=== PATIENT | male | born 1985 | race Caucasian/White ===

== ENCOUNTER 2023-07-29 07:15 | Emergency (ER) | payer SELFPAY ==
[2023-07-29] VITALS (13 sets, daily range): BP systolic 71–135; BP diastolic 50–82; PULSE 72–93; RESP 16–24; TEMP 36.5–36.7; O2SAT 95–99; BMI 32.5
--- NOTE | 2023-07-29 07:21 | ED_ITS ---
Discharge Plan Disposition Patient Disposition: Xfer Short-Term Hosp Condition: Fair Referrals Follow up/Referrals: Provider,Referral, MD [Primary Care Provider] - See instructions Clinical Impressions Clinical Impression: Hydronephrosis, Acute kidney injury Stand Alone Forms Stand Alone Forms: Transfer Record - ED Instructions Patient Instructions: DI for Kidney Stones Discharge ED Provider: Dennis Vasquez General Adult HPI General Chief complaint: PAIN Stated complaint: abd pain Time Seen by Provider: 07/29/23 07:21 History of Present Illness HPI narrative: The patient presents with a chief complaint of persistent kidney stone pain on the right side, which has been ongoing for 3 months. The kidney stone is 5 millimeters in size and has not passed despite a 50-50 chance of passing it. The patient was in the emergency room a week ago for the same issue. The pain comes and goes, with the current episode starting last night at 12 o'clock. The patient has been trying to avoid coming to the emergency room due to not wanting to worry their children. The patient is visiting family and was supposed to return home tomorrow. The patient has been prescribed Flomax and pain medication for the kidney stone. The patient denies any other medical conditions or medications, except for a previous knee injury. A mild fever was experienced recently but not upon arrival at the emergency room. The kidney stone is reportedly 2 centimeters away from the bladder per prior CT. Please note that above description of symptoms, in this electronic medical record under categorization of recalled from ER triage doctor by RN are reflective of an initial nursing assessment, however, is not reflective of my full history and physical exam that was personally taken and clarified. Consequentially, this preceding description of symptoms, which may include the patient's categorized chief complaint in the EMR, do not reflect my personal clinical impression, and the ultimate description of history of present illness and patient stated complaints should be deferred to this section of the note. Unless stated otherwise or congruent with this section of the note, additional signs, symptoms, or incongruence should be interpreted as inaccurate with my clinical impression. Related Data Allergies Allergy/AdvReac Type Severity Reaction Status Date / Time No Known Allergies Allergy Verified 07/29/23 07:28 [facility] Disclaimer: The information contained in this section may have been updated after the patient was seen, as this information can be updated by other users. Medical History (Updated 07/29/23 @ 12:56 by Dennis Vasquez MD) PTSD (post-traumatic stress disorder) Anxiety Social History Smoking Status: Never smoker alcohol intake: former current occupational status: other Travel in the last 8 weeks: Inside the [place] ROS Obtained: Yes other As per HPI Physical Exam General General appearance: alert and in distress Head Head exam: atraumatic and normocephalic Eye Eye exam: Present normal appearance Neck Neck exam: Present normal inspection Chest Chest inspection: Present normal inspection and symmetric chest wall rise Respiratory Respiratory exam: Present normal lung sounds bilaterally; Absent respiratory distress Cardiovascular Cardiovascular exam: Present regular rate and normal rhythm Abdominal Exam Abdominal exam: Present soft Comment: Right-sided CVA tenderness to palpation, right lower quadrant abdominal pain Neurological Exam Neurological exam: Present alert and oriented X3 Psychiatric Psychiatric exam: Present normal affect and normal mood Skin Skin exam: Present warm and dry Medical Decision Making Medical Records Medical records reviewed: Yes I reviewed the patient's medical records. Colin Inquiry Pt receiving controlled substance: No Vital Signs: 07/29/23 07:16 07/29/23 07:22 07/29/23 07:38 Temperature 97.7 F Temperature Source Oral Pulse Rate 92 H 91 H Pulse Rate [Right] 73 Respiratory Rate 24 Blood Pressure 129/78 135/70 Blood Pressure [Right Arm] 129/78 Blood Pressure Mean [Right Arm] 95 02 Sat by Pulse Oximetry 98 98 97 Oxygen Delivery Method Room Air 07/29/23 08:01 07/29/23 08:33 07/29/23 09:15 Temperature Temperature Source Pulse Rate 87 88 83 Pulse Rate [Right] Respiratory Rate Blood Pressure 110/73 98/72 L 71/50 L Blood Pressure [Right Arm] Blood Pressure Mean [Right Arm] 02 Sat by Pulse Oximetry 97 98 97 Oxygen Delivery Method 07/29/23 09:31 07/29/23 10:03 07/29/23 10:58 Temperature Temperature Source Pulse Rate 86 72 93 H Pulse Rate [Right] Respiratory Rate Blood Pressure 113/71 108/68 L 119/66 Blood Pressure [Right Arm] Blood Pressure Mean [Right Arm] 02 Sat by Pulse Oximetry 99 99 95 Oxygen Delivery Method 07/29/23 11:30 07/29/23 12:02 07/29/23 12:31 Temperature Temperature Source Pulse Rate 90 86 79 Pulse Rate [Right] Respiratory Rate Blood Pressure 111/74 119/82 120/80 Blood Pressure [Right Arm] Blood Pressure Mean [Right Arm] 02 Sat by Pulse Oximetry 95 98 99 Oxygen Delivery Method 07/29/23 12:39 Temperature 98.0 F Temperature Source Oral Pulse Rate 76 Pulse Rate [Right] Respiratory Rate 16 Blood Pressure 117/62 Blood Pressure [Right Arm] Blood Pressure Mean [Right Arm] 02 Sat by Pulse Oximetry Oxygen Delivery Method Room Air Lab Data Lab Results 07/29/23 07:20: WBC 10.2, RBC 6.07, Hgb 15.8, Hct 49.0, MCV 80.6, MCH 26.0 L, MCHC 32.2, RDW 15.1, Plt Count 188, MPV 7.8, Neut % (Auto) 60.6, Lymph % (Auto) 31.9, [place]ha % (Auto) 4.4, Eos % (Auto) 2.0, Baso % (Auto) 1.1, Neut # (Auto) 6.2, Lymph # (Auto) 3.2, [place] # (Auto) 0.4, Eos # (Auto) 0.2, Baso # (Auto) 0.1, Sodium 139, Potassium 3.5, Chloride 106, Carbon Dioxide 23, Anion Gap 13.5, BUN 15, Creatinine 1.70 H, Estimated Creat Clear 85, Estimated GFR 46 L, Est GFR ( Amer) 55 L, Glucose 103 H, Calcium 9.3, Total Bilirubin 0.8, AST 41, ALT 39, Alkaline Phosphatase 71, Total Protein 7.8, Albumin 4.5, Globulin 3.3 H, Albumin/Globulin Ratio 1.4 07/29/23 09:06: Urine Color Dark yellow, Urine Appearance Clear, Urine pH 7.0, Ur Specific [place] 1.020, Urine Protein 1+, Urine Glucose (UA) Trace, Urine Ketones Trace, Urine Blood Negative, Urine Nitrate Positive, Urine Bilirubin 1+ A, Urine Urobilinogen 4.0, Ur Leukocyte Esterase Negative, Urine RBC None, Urine WBC Occasional, Ur Squamous Epith Cells Occasional, Urine Bacteria Trace 07/29/23 07:20 07/29/23 07:20 Orders (Tests/Meds): ED MEDICATIONS Discontinued Medications Generic Name Dose Route Start Last Admin Trade Name Freq PRN Reason Stop Dose Admin Hydromorphone HCl 0.5 mg 07/29/23 07:22 07/29/23 07:42 Hydromorphone 4 Mg/Ml Syringe IV 07/29/23 07:23 Not Given ONCE ONE Hydromorphone HCl 0.5 mg 07/29/23 07:41 07/29/23 07:43 Hydromorphone 2mg/Ml Syringe IV 07/29/23 07:42 0.5 mg ONCE ONE Administration Hydromorphone HCl 0.5 mg 07/29/23 09:38 07/29/23 09:45 Hydromorphone 4 Mg/Ml Syringe IV 07/29/23 09:39 Not Given ONCE ONE Hydromorphone HCl 0.5 mg 07/29/23 09:45 07/29/23 09:45 Hydromorphone 2mg/Ml Syringe IV 07/29/23 09:46 0.5 mg ONCE ONE Administration Lactated Ringer's 1,000 mls @ 999 mls/hr 07/29/23 07:22 07/29/23 07:43 Lactated Ringer's 1000 Ml Bag IV 07/29/23 08:22 999 mls/hr .Q1H1M ONE Administration Lactated Ringer's 1,000 mls @ 999 mls/hr 07/29/23 09:05 07/29/23 09:15 Lactated Ringer's 1000 Ml Bag IV 07/29/23 10:05 999 mls/hr .Q1H1M ONE Administration Ketorolac Tromethamine 15 mg 07/29/23 07:22 07/29/23 07:42 Ketorolac 30mg/Ml Vial IV 07/29/23 07:23 15 mg ONCE ONE Administration Lorazepam 0.5 mg 07/29/23 10:26 07/29/23 10:46 Lorazepam 2mg/Ml Vial IV 07/29/23 10:27 0.5 mg ONCE ONE Administration Ondansetron HCl 4 mg 07/29/23 07:22 07/29/23 07:42 Ondansetron 4mg/2ml Vial IV 07/29/23 07:23 4 mg ONCE ONE Administration Sodium Chloride 10 ml 07/29/23 10:26 Sodium Chloride 0.9% 10ml Vial IV 08/28/23 10:25 NEEDED PRN to Dilute Lorazepam inj ORDERS Category Date Time Status CT abdomen pelvis wo con Stat Cat Scan 07/29/23 07:27 Completed CBC w/Auto Diff [Complete Blood Count Auto Diff] Stat Lab 07/29/23 07:20 Completed CMP [Comprehensive Metabolic Panel] Stat Lab 07/29/23 07:20 Completed Urinalysis and Microscopic Stat Lab 07/29/23 09:06 Completed Urine Culture Stat Micro 07/29/23 09:49 Received Medical Decision Narrative: Patient with history and exam per above presenting for evaluation of right- sided flank pain Diagnoses considered include urolithiasis, hydronephrosis, infected stone, acute kidney injury, electrolyte abnormality, intra-abdominal pathology, among others ED workup and treatment included: ED MEDICATIONS Discontinued Medications Generic Name Dose Route Start Last Admin Trade Name Freq PRN Reason Stop Dose Admin Hydromorphone HCl 0.5 mg 07/29/23 07:22 07/29/23 07:42 Hydromorphone 4 Mg/Ml Syringe IV 07/29/23 07:23 Not Given ONCE ONE Hydromorphone HCl 0.5 mg 07/29/23 07:41 07/29/23 07:43 Hydromorphone 2mg/Ml Syringe IV 07/29/23 07:42 0.5 mg ONCE ONE Administration Hydromorphone HCl 0.5 mg 07/29/23 09:38 07/29/23 09:45 Hydromorphone 4 Mg/Ml Syringe IV 07/29/23 09:39 Not Given ONCE ONE Hydromorphone HCl 0.5 mg 07/29/23 09:45 07/29/23 09:45 Hydromorphone 2mg/Ml Syringe IV 07/29/23 09:46 0.5 mg ONCE ONE Administration Lactated Ringer's 1,000 mls @ 999 mls/hr 07/29/23 07:22 07/29/23 07:43 Lactated Ringer's 1000 Ml Bag IV 07/29/23 08:22 999 mls/hr .Q1H1M ONE Administration Lactated Ringer's 1,000 mls @ 999 mls/hr 07/29/23 09:05 07/29/23 09:15 Lactated Ringer's 1000 Ml Bag IV 07/29/23 10:05 999 mls/hr .Q1H1M ONE Administration Ketorolac Tromethamine 15 mg 07/29/23 07:22 07/29/23 07:42 Ketorolac 30mg/Ml Vial IV 07/29/23 07:23 15 mg ONCE ONE Administration Lorazepam 0.5 mg 07/29/23 10:26 07/29/23 10:46 Lorazepam 2mg/Ml Vial IV 07/29/23 10:27 0.5 mg ONCE ONE Administration Ondansetron HCl 4 mg 07/29/23 07:22 07/29/23 07:42 Ondansetron 4mg/2ml Vial IV 07/29/23 07:23 4 mg ONCE ONE Administration Sodium Chloride 10 ml 07/29/23 10:26 Sodium Chloride 0.9% 10ml Vial IV 08/28/23 10:25 NEEDED PRN to Dilute Lorazepam inj ORDERS Category Date Time Status CT abdomen pelvis wo con Stat Cat Scan 07/29/23 07:27 Completed CBC w/Auto Diff [Complete Blood Count Auto Diff] Stat Lab 07/29/23 07:20 Completed CMP [Comprehensive Metabolic Panel] Stat Lab 07/29/23 07:20 Completed Urinalysis and Microscopic Stat Lab 07/29/23 09:06 Completed Urine Culture Stat Micro 07/29/23 09:49 Received Labs were independently interpreted by me, significant for presumed acute kidney injury with creatinine 1.76, baseline unknown but patient reports normal renal function Imaging was independently visualized and interpreted by me, significant for right-sided kidney stone, associated hydronephrosis, distal, 4 mm. Please refer to radiology report for full details. Patient had intractable pain upon serial evaluations. Given concern for acute kidney injury in the setting of intractable pain secondary to urolith with hydronephrosis that has been ongoing for 3 months and failed trial of expulsive therapy, after shared decision making patient is amenable to transfer to outside hospital for further management. Patient was excepted to outside hospital by urologist Dr. Man. Critical Care Critical Care Time Critical Care Time: No
--- NOTE | 2023-07-29 07:27 | CT_ITS ---
FINAL REPORT TECHNIQUE: Axial images through the abdomen and pelvis were performed without contrast. This study was performed with techniques to keep radiation doses as low as reasonably achievable, (ALARA). Individualized dose reduction techniques using automated exposure control or adjustment of mA and/or kV according to the patient's size were employed. CLINICAL HISTORY: abdominal pain, hx urolithiasis, RIGHT FLANK PAIN FINDINGS: ABDOMEN: The lung bases are clear. The heart size is normal. Limited images of the liver are unremarkable. The spleen is normal. No adrenal mass is identified. The aorta is normal in caliber. There is no significant free fluid or adenopathy. There is a less than 3 mm nonobstructing right renal stone. There is a 10 mm low-attenuation mass in the upper pole of the right kidney which can not be accurately characterized without contrast. There is mild right hydronephrosis and hydroureter secondary to a 4 mm right UVJ stone. PELVIS: The appendix is not identified. The urinary bladder is unremarkable. There is no significant free fluid or adenopathy. IMPRESSION: Mild right hydronephrosis and hydroureter secondary to an obstructing UVJ stone. Right renal mass. Recommend renal mass protocol CT. Right nephrolithiasis. Reviewed, Interpreted and Dictated by Marco A Grant III, MD Transcribed by Coty Anaya Authenticated and [facility]
[2023-07-29 07:39] LABS: Chloride 106 mmol/L (98-107); Potassium 3.5 mmoL/L (3.5-5.1); Sodium 139 mmol/L (136-145)
[2023-07-29 07:42] LABS: Alanine Aminotransferase 39 U/L (12-78); Albumin Level 4.5 g/dl (3.5-5.0); Albumin/Globulin Ratio 1.4 (1.1-1.8); Alkaline Phosphatase 71 U/L (38-126); Anion Gap 13.5 mEq/L (5-15); Aspartate Amino Transferase 41 U/L (17-59); Bilirubin,Total 0.8 mg/dl (0.2-1.3); Blood Urea Nitrogen 15 mg/dl (9-20); Calcium 9.3 mg/dl (8.4-10.2); Carbon Dioxide 23 mmol/L (22.0-30.0); Creatinine Clearance Estimated 85 mL/min (50-200); Estimated Glomerular Filt Rate 46 ml/min (>60); GFR (African American) 55 ML/MIN (>60); Globulin 3.3 g/dL (1.3-3.2); Glucose 103 mg/dl (74-100); Total Protein,Serum 7.8 g/dl (6.3-8.2)
[2023-07-29] MEDS: KETOROLAC 30MG/ML VIAL 15 MG IV (07:42)
[2023-07-29] MEDS: ONDANSETRON 4MG/2ML VIAL 4 MG IV (07:42)
[2023-07-29] MEDS: LACTATED RINGERS 1000ML 1,000 ML 999 ML IV ×2 (07:43→09:15)
[2023-07-29] MEDS: HYDROMORPHONE 2MG/ML SYRINGE 0.5 MG IV ×2 (07:43→09:45)
[2023-07-29 07:46] LABS: Basophils # 0.1 K/mm3 (0-0.2); Basophils % 1.1 % (0.1-2.0); Eosinophils # 0.2 K/mm3 (0.0-0.4); Hemoglobin 15.8 g/dL (14.1-18.0); Lymphocytes # 3.2 K/mm3 (0.7-4.5); Lymphocytes % 31.9 % (10-50); Mean Corpuscular HGB Conc 32.2 g/dL (31.8-35.4); Mean Corpuscular Volume 80.6 fl (80-94); Mean Platelet Volume 7.8 fl (7.4-10.4); Monocytes # 0.4 K/mm3 (0.1-1.0); Monocytes % 4.4 % (1.7-9.3); Neutrophils # 6.2 K/mm3 (1.8-7.8); Neutrophils % 60.6 % (37.0-80.0); Platelet Count 188 K/mm3 (142-424); Red Blood Count 6.07 M/mm3 (4.60-6.20); Red Cell Distribution Width 15.1 % (11.5-17.5); White Blood Count 10.2 K/mm3 (4.8-10.8)
--- NOTE | 2023-07-29 08:37 | PC.NURSE ---
Rounded on patient, no needs voiced at this time.
[2023-07-29 09:09] LABS: Microscopic, Urine URINE MICROSCOPIC (MICROSCOPIC)
[2023-07-29 09:14] LABS: Appearance,Urine CLEAR (Clear); Blood, Urine Negative (Negative); Glucose,Urine (UA) TRACE (Negative); Ketones,Urine TRACE (Negative); Leukocyte Esterase,Urine Negative (Negative); Nitrate,Urine POSITIVE (Negative); Protein,Urine 1+ (Negative)
[2023-07-29 09:17] LABS: Bilirubin,Urine 1+ (Negative); Color,Urine Dark Yellow (Yellow)
[2023-07-29 09:20] LABS: Bacteria,Urine Trace /lpf; Squamous Epithelial Cell,Urine Occasional #/hpf (0-5); WBC,Urine Occasional #/hpf (0-3)
--- NOTE | 2023-07-29 09:30 | PC.NURSE ---
Called Radiology to inquire on CT read. They will call us back.
--- NOTE | 2023-07-29 09:48 | PC.NURSE ---
Dr. Vasquez is at bedside
--- NOTE | 2023-07-29 09:49 | PC.NURSE ---
Dr. Vasquez at bedside
--- NOTE | 2023-07-29 09:54 | PC.NURSE ---
calling at this time.
--- NOTE | 2023-07-29 09:56 | PC.NURSE ---
Clarified with pt since he is a [facility], he reports I am not eligible yet and in the middle of the paperwork . States he does not have a preference for transferring facility. Staff calling [facility].
--- NOTE | 2023-07-29 10:30 | PC.NURSE ---
Dr. Vasquez s/w Dr. Marco A Man, Urology c/o [facility]. He agrees to accept pt
[2023-07-29] MEDS: LORazepam 2MG/ML VIAL 0.5 MG IV (10:46)
--- NOTE | 2023-07-29 11:07 | PC.NURSE ---
o/p with the Hospitalist at [facility].
--- NOTE | 2023-07-29 11:20 | PC.NURSE ---
faxed med records request to [facility] to obtain ct reports from pt's previous ct scans this year.
--- NOTE | 2023-07-29 11:30 | PC.NURSE ---
Dr. Vasquez states pt is ok to go POV if family drives him to [facility]
--- NOTE | 2023-07-29 12:06 | PC.NURSE ---
Called report to Betty GARCIA @ [facility]- 4A .
== END 2023-07-29 12:45 | disposition short-term general hospital (02) ==
PROVIDERS: Emergency Provider Emergency Medicine
DX: N13.0 Hydronephrosis with ureteropelvic junction obstruction (principal); N13.4 Hydroureter; N17.8 Other acute kidney failure
CPT/HCPCS: 74176; 80053; 81001; 85025; 87086; 96361; 96374; 96375; 96376; 99285; J1170; J1885; J2060; J2405; J7120

== ENCOUNTER 2023-08-11 02:34 | Emergency (ER) | payer MEDICAID, SELFPAY ==
[2023-08-11 02:36] VITALS: BP 149/79; PULSE 93; RESP 22; TEMP 36.3; O2SAT 98; BMI 31.7
--- NOTE | 2023-08-11 02:45 | ED_ITS ---
Discharge Plan Disposition Patient Disposition: Home, Self-Care Condition: Good Prescriptions Prescriptions: New ondansetron 4 mg tablet,disintegrating 4 mg PO Q8H PRN (Reason: nausea and vomiting) Qty: 10 0RF ketorolac 10 mg tablet 10 mg PO Q8H PRN (Reason: pain) Qty: 20 0RF Rx Instructions: maximum total duration of 5 days from all oral, intranasal, or parenteral formulations cephalexin 500 mg capsule 500 mg PO QID 7 Days Qty: 28 0RF Referrals Follow up/Referrals: Marco A Man [Primary Care Provider] - See instructions Activity Restrictions/Add. Instructions Additional Instructions/Restrictions: Take Keflex as prescribed, take Toradol as needed for pain and Zofran as needed for nausea. Follow-up closely with urology for continued management and return for any new or worsening symptoms including but not limited to any fevers, worsening pain or other concerns arise. Clinical Impressions Clinical Impression: Calculus of kidney Hydronephrosis Qualifiers: Hydronephrosis type: unspecified Qualified Code(s): N13.30 - Unspecified hydronephrosis Instructions Patient Instructions: DI for Acute Abdominal Pain Discharge ED Provider: Lyly Sharp General Adult HPI General Chief complaint: Abdominal Pain Stated complaint: kidney stones, has a stint in, peeing blood Time Seen by Provider: 08/11/23 02:39 History of Present Illness HPI narrative: Patient is a 37-year-old female with past medical history nephrolithiasis and REESE presenting with right-sided flank pain. He states that he has been dealing with a kidney stone that is 5 mm on the right for the past couple of months, follows with Dr. Man at [facility] and approximately 1 week ago he had a procedure for a planned lithotripsy but he had a reaction to anesthesia and required intubation and they placed a ureteral stent at that time. He has had a stent in and some episodes intermittently of severe pain on the right but this is the longest it has lasted and he is not able to tolerate the pain any longer, has had nausea and vomited twice from the pain. He does also note hematuria. The soonest they could get him in for follow-up outpatient is August 21. Related Data Previous Rx's Medication Instructions Recorded cephalexin 500 mg capsule 500 mg PO QID 7 days #28 caps 08/11/23 ketorolac 10 mg tablet 10 mg PO Q8H PRN pain #20 tabs 08/11/23 ondansetron 4 mg disintegrating 4 mg PO Q8H PRN nausea and 08/11/23 tablet vomiting #10 tabs Allergies Allergy/AdvReac Type Severity Reaction Status Date / Time No Known Allergies Allergy Verified 07/29/23 07:28 [facility] Disclaimer: The information contained in this section may have been updated after the patient was seen, as this information can be updated by other users. Medical History (Updated 08/11/23 @ 04:23 by Caroline Shirley RN) PTSD (post-traumatic stress disorder) Anxiety Social History (Updated 07/29/23 @ 13:13 by Dennis Vasquez MD) Smoking Status: Unknown if ever smoked alcohol intake: former current occupational status: other Travel in the last 8 weeks: Inside the [place] ROS Obtained: Yes Systems reviewed as appropriate & no additional complaints except as documented Physical Exam General General appearance: alert and other (Appears very uncomfortable and intermittently sitting and standing throughout exam) Chest Chest inspection: Present normal inspection and symmetric chest wall rise Respiratory Respiratory exam: Present normal lung sounds bilaterally; Absent respiratory distress Cardiovascular Cardiovascular exam: Present regular rate and normal rhythm Abdominal Exam Abdominal exam: Present soft and other (Right CVA severe tenderness); Absent distention Extremities Exam Extremities exam: Present normal inspection Neurological Exam Neurological exam: Present alert and oriented X3 Skin Skin exam: Present warm and dry Medical Decision Making Colin Inquiry Pt receiving controlled substance: No Vital Signs: 08/11/23 02:36 Temperature 97.4 F L Temperature Source Oral Pulse Rate [Left] 93 H Respiratory Rate 22 Blood Pressure [Right Arm] 149/79 H Blood Pressure Mean [Right Arm] 102 02 Sat by Pulse Oximetry 98 Oxygen Delivery Method Room Air Lab Data Lab results reviewed: Yes I reviewed the patient's lab results. Lab Results 08/11/23 02:51: WBC 9.9, RBC 6.64 H, Hgb 17.2, Hct 52.5 H, MCV 79.1 L, MCH 26.0 L, MCHC 32.8, RDW 14.9, Plt Count 248, MPV 7.2 L, Neut % (Auto) 60.7, Lymph % (Auto) 30.9, [place] % (Auto) 4.7, Eos % (Auto) 2.6, Baso % (Auto) 1.1, Neut # (Auto) 6.0, Lymph # (Auto) 3.1, [place] # (Auto) 0.5, Eos # (Auto) 0.3, Baso # (Auto) 0.1, Sodium 139, Potassium 4.1, Chloride 104, Carbon Dioxide 25, Anion Gap 14.1, BUN 10, Creatinine 1.30 H, Estimated Creat Clear 108, Estimated GFR 62, Est GFR ( Amer) 76, Glucose 104 H, Calcium 9.6, Total Bilirubin 0.3, AST 33, ALT 50, Alkaline Phosphatase 75, Total Protein 8.3 H, Albumin 4.7, G lobulin 3.6 H, Albumin/Globulin Ratio 1.3, Lipase 180 08/11/23 03:08: Urine Color Red, Urine Appearance Cloudy, Urine pH 6.5, Ur Specific [place] >= 1.030, Urine Protein 3+, Urine Glucose (UA) Trace, Urine Ketones 1+, Urine Blood 3+, Urine Nitrate Positive, Urine Bilirubin Negative, Urine Urobilinogen 2.0, Ur Leukocyte Esterase 1+ A, Urine RBC Tntc, Urine WBC 10-20, Ur Squamous Epith Cells None, Urine Bacteria 1+ 08/11/23 02:51 08/11/23 02:51 Orders (Tests/Meds): ED MEDICATIONS Generic Name Dose Route Start Last Admin Trade Name Freq PRN Reason Stop Dose Admin Sodium Chloride 10 ml 08/11/23 03:39 08/11/23 03:40 Sodium Chloride 0.9% 10ml Syr (Rad Only) IV 09/10/23 03:38 10 ml NEEDED PRN Administration Maintain IV Site Discontinued Medications Generic Name Dose Route Start Last Admin Trade Name Freq PRN Reason Stop Dose Admin Sodium Chloride 1,000 mls @ 999 mls/hr 08/11/23 02:45 08/11/23 02:53 Sod Chlor 0.9% 1000ml Bag IV 08/11/23 03:45 999 mls/hr .Q1H1M ROMEO Administration Ceftriaxone Sodium 1 gm/ 50 mls @ 100 mls/hr 08/11/23 03:14 08/11/23 03:34 Sodium Chloride IV 08/11/23 03:43 100 mls/hr ONCE ONE Administration Iopamidol 75 ml 08/11/23 03:39 06/27/24 03:40 Iopamidol-370 (76%);100ml Bottle IV 08/11/23 03:40 75 ml ONCE ONE Administration Ketorolac Tromethamine 15 mg 08/11/23 02:44 08/11/23 02:56 Ketorolac 30mg/Ml Vial IV 08/11/23 02:45 15 mg ONCE ONE Administration Ondansetron HCl 4 mg 08/11/23 02:44 08/11/23 02:55 Ondansetron 4mg/2ml Vial IV 08/11/23 02:45 4 mg ONCE ONE Administration ORDERS Category Date Time Status CT abdomen pelvis w con Stat Cat Scan 08/11/23 03:09 Completed Complete Blood Count Auto Diff Stat Lab 08/11/23 02:51 Completed Comprehensive Metabolic Panel Stat Lab 08/11/23 02:51 Completed Lipase Stat Lab 08/11/23 02:51 Completed Urinalysis and Microscopic Stat Lab 08/11/23 03:08 Completed Urine Culture Stat Micro 08/11/23 03:08 Received Medical Decision Narrative: Patient is a 37-year-old male with past medical history nephrolithiasis and REESE presenting with right flank pain that is severe and worsening after ureteral stent was placed 1 week ago. He follows with Dr. Man at [facility] and had ureteral stent placed for a 5 mm stone that he has had for several months now with increased right flank pain and hematuria. He reportedly has severe reactions to morphine and codeine and the string from the stent was pushed back into his urethra after a Be was attempted post procedurally so we are not able to remove it. He appears very uncomfortable and sitting and standing throughout history due to discomfort. He has severe right-sided CVA tenderness but exam is otherwise unremarkable and he is hemodynamically stable. Will obtain blood work and imaging for further evaluation and attempt pain control at this time. CBC and CMP nonactionable notably with patient's creatinine of 1.3 significantly improved from prior. UA possibly with some blood and possibly contamination but out of an abundance of precaution we will treat for UTI and given 1 g of Rocephin while in the emergency department. Lipase negative. CT abdomen pelvis showed no acute process but does show stent in place with hydronephrosis comparable to patient's previous scan and stone remains in place as well. On reevaluation patient had symptomatic resolution after medications. Discussed blood work and imaging and given copy of disc and recommended close outpatient follow-up with his urologist and will discharge patient with a prescription for Toradol, Zofran and Keflex. Discussed strict return precautions as well to which patient is agreeable and discharged in stable condition. Critical Care Critical Care Time Critical Care Time: No
[2023-08-11] MEDS: 0.9 % SODIUM CHLORIDE 1000ML 1,000 ML 999 ML IV (02:53)
[2023-08-11] MEDS: ONDANSETRON 4MG/2ML VIAL 4 MG IV (02:55)
[2023-08-11] MEDS: KETOROLAC 30MG/ML VIAL 15 MG IV (02:56)
[2023-08-11 02:59] LABS: Basophils # 0.1 K/mm3 (0-0.2); Basophils % 1.1 % (0.1-2.0); Eosinophils # 0.3 K/mm3 (0.0-0.4); Eosinophils % 2.6 % (0.1-12.0); Hematocrit 52.5 % (42.0-52.0); Hemoglobin 17.2 g/dL (14.1-18.0); Lymphocytes # 3.1 K/mm3 (0.7-4.5); Lymphocytes % 30.9 % (10-50); Mean Corpuscular HGB Conc 32.8 g/dL (31.8-35.4); Mean Corpuscular Volume 79.1 fl (80-94); Mean Platelet Volume 7.2 fl (7.4-10.4); Monocytes # 0.5 K/mm3 (0.1-1.0); Monocytes % 4.7 % (1.7-9.3); Neutrophils % 60.7 % (37.0-80.0); Platelet Count 248 K/mm3 (142-424); Red Blood Count 6.64 M/mm3 (4.60-6.20); Red Cell Distribution Width 14.9 % (11.5-17.5); White Blood Count 9.9 K/mm3 (4.8-10.8)
[2023-08-11 03:04] LABS: Chloride 104 mmol/L (98-107); Potassium 4.1 mmoL/L (3.5-5.1); Sodium 139 mmol/L (136-145)
[2023-08-11 03:06] LABS: Alanine Aminotransferase 50 U/L (12-78); Aspartate Amino Transferase 33 U/L (17-59); Blood Urea Nitrogen 10 mg/dl (9-20); Creatinine Clearance Estimated 108 mL/min (50-200); Estimated Glomerular Filt Rate 62 ml/min (>60); GFR (African American) 76 ML/MIN (>60)
[2023-08-11 03:07] LABS: Albumin Level 4.7 g/dl (3.5-5.0); Albumin/Globulin Ratio 1.3 (1.1-1.8); Alkaline Phosphatase 75 U/L (38-126); Anion Gap 14.1 mEq/L (5-15); Bilirubin,Total 0.3 mg/dl (0.2-1.3); Calcium 9.6 mg/dl (8.4-10.2); Carbon Dioxide 25 mmol/L (22.0-30.0); Globulin 3.6 g/dL (1.3-3.2); Glucose 104 mg/dl (74-100); Lipase 180 U/L (23-300); Total Protein,Serum 8.3 g/dl (6.3-8.2)
--- NOTE | 2023-08-11 03:09 | CT_ITS ---
PROCEDURE INFORMATION: Exam: CT Abdomen And Pelvis With Contrast Exam date and time: 08/11/2023 3:33 AM Age: 37 years old Clinical indication: Abdominal pain; Additional info: R stone S/P stent 1wk, worsening pain TECHNIQUE: Imaging protocol: Computed tomography of the abdomen and pelvis with contrast. Radiation optimization: All CT scans at this facility use at least one of these dose optimization techniques: automated exposure control; mA and/or kV adjustment per patient size (includes targeted exams where dose is matched to clinical indication); or iterative reconstruction. Contrast material: ISOVUE; Contrast volume: 75 ml; Contrast route: IV; COMPARISON: CT ABDOMEN PELVIS WO CON 07/29/2023 7:46 AM FINDINGS: Lungs: Clear lung bases. Liver: Normal. No mass. Gallbladder and biliary ducts: Normal. No calcified stones. No ductal dilation. Pancreas: Normal. No ductal dilation. Spleen: Normal. No splenomegaly. Adrenal glands: Normal. No mass. Kidneys and ureters: Right sided double-J ureteral stent. In the distal right ureter adjacent to the stent, 3 x 4 x 5 mm ureteral stone. Right sided hydroureteronephrosis is mild, similar in appearance to 07/28/2013, prior to stent placement. 7 mm low-density focus in the left kidney is too small to characterize but statistically favors a benign process (no further follow-up needed). Stomach and bowel: Duodenum, ileum and ascending colon demonstrate mural fat deposition, suspicious for prior recurrent/chronic inflammation. This can be seen with inflammatory bowel disease. No acute inflammatory changes of the wall suspected. Appendix: Normal appendix. Intraperitoneal space: Unremarkable. No free air. No significant fluid collection. Vasculature: Unremarkable. No abdominal aortic aneurysm. Lymph nodes: Unremarkable. No enlarged lymph nodes. Urinary bladder: Unremarkable as visualized. Reproductive: Unremarkable as visualized. Bones/joints: Unremarkable. No acute fracture. Soft tissues: Unremarkable. Other findings: A retroaortic left renal vein is incidentally noted. IMPRESSION: 1. Right sided double-J ureteral stent. In the distal right ureter adjacent to the stent, 3 x 4 x 5 mm ureteral stone. Right sided hydroureteronephrosis is mild, similar in appearance to 07/28/2013, prior to stent placement. 2. Normal appendix.
[2023-08-11 03:12] LABS: Appearance,Urine Cloudy (Clear); Bilirubin,Urine Negative (Negative); Blood, Urine 3+ (Negative); Color,Urine Red (Yellow); Glucose,Urine (UA) TRACE (Negative); Ketones,Urine 1+ (Negative); Leukocyte Esterase,Urine 1+ (Negative); Microscopic, Urine URINE MICROSCOPIC (MICROSCOPIC); Nitrate,Urine POSITIVE (Negative); PH,Urine 6.5 (5.0-8.5); Protein,Urine 3+ (Negative); Specific Gravity, Urine >= 1.030 (1.005-1.030)
[2023-08-11 03:22] LABS: RBC,Urine TNTC #/hpf (0-3)
[2023-08-11 03:23] LABS: Bacteria,Urine 1+ /lpf
[2023-08-11] MEDS: CEFTRIAXONE SODIUM 1 GM in 0.9 % SODIUM CHLORIDE 50 ML IV (03:34)
[2023-08-11] MEDS: SODIUM CHLORIDE 0.9% 10ML SYR (RAD ONLY) 10 ML IV (03:40)
[2023-08-11] MEDS: IOPAMIDOL-370 (76%);100ML BOTTLE 75 ML IV (03:40)
[2023-08-11 04:22] VITALS: BP 130/78; PULSE 74; RESP 16; TEMP 36.8; O2SAT 99
== END 2023-08-11 04:26 | disposition home or self-care (01) ==
PROVIDERS: Emergency Provider Emergency Medicine; PCP Urology
DX: N13.0 Hydronephrosis with ureteropelvic junction obstruction (principal); R10.31 Right lower quadrant pain; R11.2 Nausea with vomiting, unspecified
CPT/HCPCS: 74177; 80053; 81001; 83690; 85025; 87086; 96365; 96375; 99285; J0696; J1885; J2405; Q9967

== ENCOUNTER 2023-08-12 11:11 | Emergency (ER) | payer MEDICAID, SELFPAY ==
[2023-08-12 11:13] VITALS: BP 132/90; PULSE 100; RESP 19; TEMP 36.9; O2SAT 98; BMI 31.7
--- NOTE | 2023-08-12 11:19 | CT_ITS ---
FINAL REPORT TECHNIQUE: Axial imaging of the head was obtained without contrast. This study was performed with techniques to keep radiation doses as low as reasonably achievable, (ALARA). Individualized dose reduction techniques using automated exposure control or adjustment of mA and/or kV according to the patient's size were employed. CLINICAL HISTORY: right sided flank pain, recent stent removal hx kidney stones FINDINGS: Abdomen: Lung bases are clear. Liver, spleen, pancreas and adrenal glands have a normal CT appearance in their limited unenhanced state. The gallbladder is normal. There is moderate right hydronephrosis and hydroureter secondary to an obstructing UVJ stone measuring 4 mm. There is a 2 mm lower pole right renal stone. There is a hypodense lesion in the upper pole of the left kidney, probably a cyst. The bowel is unremarkable. Pelvis: The appendix is normal. Right UVJ stone as detailed above. The bladder and prostate are unremarkable. No fluid collection or adenopathy is seen. IMPRESSION: 4 mm right UVJ stone causing high-grade right sided obstruction. Minimal right nephrolithiasis. Reviewed, Interpreted and Dictated by Greg Paul MD Transcribed by Coty Anaya Authenticated and [facility]
[2023-08-12] MEDS: KETOROLAC 30MG/ML VIAL 15 MG IV (11:26)
[2023-08-12] MEDS: ONDANSETRON 4MG/2ML VIAL 4 MG IV (11:26)
[2023-08-12] MEDS: LACTATED RINGERS 1000ML 1,000 ML 999 ML IV (11:26)
[2023-08-12] MEDS: HYDROMORPHONE 2MG/ML SYRINGE 1 MG IV (11:41)
[2023-08-12 11:43] LABS: Basophils # 0.1 K/mm3 (0-0.2); Basophils % 1.2 % (0.1-2.0); Eosinophils # 0.2 K/mm3 (0.0-0.4); Eosinophils % 1.7 % (0.1-12.0); Hematocrit 51.1 % (42.0-52.0); Hemoglobin 16.7 g/dL (14.1-18.0); Lymphocytes # 2.8 K/mm3 (0.7-4.5); Lymphocytes % 28.7 % (10-50); Mean Corpuscular HGB Conc 32.7 g/dL (31.8-35.4); Mean Corpuscular Hemoglobin 26.2 pg (27.0-31.2); Mean Corpuscular Volume 79.9 fl (80-94); Monocytes # 0.4 K/mm3 (0.1-1.0); Monocytes % 3.9 % (1.7-9.3); Neutrophils # 6.4 K/mm3 (1.8-7.8); Neutrophils % 64.6 % (37.0-80.0); Platelet Count 255 K/mm3 (142-424); Red Blood Count 6.39 M/mm3 (4.60-6.20); White Blood Count 9.9 K/mm3 (4.8-10.8)
[2023-08-12 11:52] LABS: Chloride 103 mmol/L (98-107); Potassium 4.1 mmoL/L (3.5-5.1); Sodium 138 mmol/L (136-145)
--- NOTE | 2023-08-12 11:54 | HMH.EDGENADL ---
Discharge Plan Disposition Patient Disposition: Home, Self-Care Condition: Good Prescriptions Prescriptions: No Action ondansetron 4 mg tablet,disintegrating 4 mg PO Q8H PRN (Reason: nausea and vomiting) Qty: 10 0RF ketorolac 10 mg tablet 10 mg PO Q8H PRN (Reason: pain) Qty: 20 0RF Rx Instructions: maximum total duration of 5 days from all oral, intranasal, or parenteral formulations cephalexin 500 mg capsule 500 mg PO QID 7 Days Qty: 28 0RF Referrals Follow up/Referrals: Provider,Referral, MD [Primary Care Provider] - See instructions Activity Restrictions/Add. Instructions Additional Instructions/Restrictions: You were evaluated in the emergency department today. Please continue taking your prescriptions at home as prescribed. Make sure that you stay hydrated. Follow-up closely with the urologist that you are referred to by your prior urologist. Return to the emergency department for new or worsening symptoms, such as significant worsening in pain, fever greater than 100.4 ?F, or other concerns. 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 will call you to schedule outpatient follow up, but it may be a while. Clinical Impressions Clinical Impression: Flank pain, Ureterolithiasis Stand Alone Forms Stand Alone Forms: Work/School Release Instructions Patient Instructions: DI for Flank Pain Discharge ED Provider: Varsha Mckeon General Adult HPI General Chief complaint: Abdominal Pain Stated complaint: kidney stone stint removal today Time Seen by Provider: 08/12/23 11:14 Mode of Arrival: Wheelchair Source of Information: Patient Limitations: No Limitations Description of Symptoms (Recalled from ER Triage Doc. by RN): pt reports pain on the way home approx 30 mins after he had ureter stent removed at [facility] this am. pt has a known kidney stone but does not follow with a urologist. History of Present Illness HPI narrative: This patient is a 37-year-old male with a history of obstructive ureterolithiasis on the right status post and placement and removal approximately 30 minutes prior to arrival presenting to the emergency department for evaluation with concern for severe right flank pain. He does have [facility] where he had a stent removed. He notes that the stone has still been in place and has not successfully passed, however they believed that maybe it with stent removal it would pass on its own, as it is reportedly 5 mm. I reviewed medical records and noted the patient has a 3 x 4 x 5 mm ureteral stone on the right with hydroureteronephrosis that is mild. He was evaluated here yesterday for the symptoms and had no significant leukocytosis. Kidney function was improved from prior labs on 07/29/2023 with a creatinine of 1.3 yesterday. No other concerns noted at this time aside from the severe right flank pain. Related Data Previous Rx's Medication Instructions Recorded cephalexin 500 mg capsule 500 mg PO QID 7 days #28 caps 08/11/23 ketorolac 10 mg tablet 10 mg PO Q8H PRN pain #20 tabs 08/11/23 ondansetron 4 mg disintegrating 4 mg PO Q8H PRN nausea and 08/11/23 tablet vomiting #10 tabs Allergies Allergy/AdvReac Type Severity Reaction Status Date / Time morphine Allergy Verified 08/12/23 11:30 [facility] Disclaimer: The information contained in this section may have been updated after the patient was seen, as this information can be updated by other users. Medical History PTSD (post-traumatic stress disorder) Anxiety Social History Smoking Status: Current every day smoker alcohol intake: former current occupational status: other Travel in the last 8 weeks: Inside the [place] ROS Obtained: Yes All systems reviewed & no additional complaints except as documented Physical Exam General General appearance: alert and anxious Comment: Actively screaming out and writhing around in pain Head Head exam: atraumatic and normocephalic Eye Eye exam: Present normal appearance, PERRL and EOMI ENT ENT exam: Present normal exam, normal oropharynx, mucous membranes moist and normal external ear exam Neck Neck exam: Present normal inspection, full ROM and trachea midline; Absent tenderness Chest Chest inspection: Present normal inspection and symmetric chest wall rise; Absent tenderness Respiratory Respiratory exam: Present normal lung sounds bilaterally; Absent respiratory distress, wheezes, stridor or accessory muscle use Cardiovascular Cardiovascular exam: Present regular rate and normal rhythm Abdominal Exam Abdominal exam: Present soft and tenderness (Right side); Absent distention, guarding, rebound or rigidity Extremities Exam Extremities exam: Present normal inspection, full ROM and normal capillary refill; Absent tenderness or edema Back Exam Back exam: Present full ROM and CVA tenderness (R) Neurological Exam Neurological exam: Present alert, oriented X3, CN II-XII intact and normal gait; Absent motor sensory deficit Psychiatric Psychiatric exam: Present anxious Skin Skin exam: Present warm and dry Medical Decision Making Medical Records Medical records reviewed: Yes I reviewed the patient's medical records. Colin Inquiry Pt receiving controlled substance: No Vital Signs: 08/12/23 11:13 08/12/23 12:31 08/12/23 13:01 Temperature 98.5 F Temperature Source Oral Pulse Rate 76 80 Pulse Rate [Left Radial] 100 H Respiratory Rate 19 Blood Pressure 124/83 123/83 Blood Pressure [Right Arm] 132/90 Blood Pressure Mean 94 91 Blood Pressure Mean [Right Arm] 104 02 Sat by Pulse Oximetry 98 98 99 Oxygen Delivery Method Room Air Room Air 08/12/23 13:31 08/12/23 14:31 Temperature 98.0 F Temperature Source Pulse Rate 83 83 Pulse Rate [Left Radial] Respiratory Rate 13 Blood Pressure 127/74 124/74 Blood Pressure [Right Arm] Blood Pressure Mean 99 Blood Pressure Mean [Right Arm] 02 Sat by Pulse Oximetry 99 Oxygen Delivery Method Room Air Room Air Lab Data Lab results reviewed: Yes I reviewed the patient's lab results. Lab Results 08/12/23 11:23: WBC 9.9, RBC 6.39 H, Hgb 16.7, Hct 51.1, MCV 79.9 L, MCH 26.2 L, MCHC 32.7, RDW 15.0, Plt Count 255, MPV 7.0 L, Neut % (Auto) 64.6, Lymph % (Auto) 28.7, Miller % (Auto) 3.9, Eos % (Auto) 1.7, Baso % (Auto) 1.2, Neut # (Auto) 6.4, Lymph # (Auto) 2.8, Miller # (Auto) 0.4, Eos # (Auto) 0.2, Baso # (Auto) 0.1, Sodium 138, Potassium 4.1, Chloride 103, Carbon Dioxide 25, Anion Gap 14.1, BUN 7 L D, Creatinine 1.20, Estimated Creat Clear 117, Estimated GFR 69, Est GFR ( Amer) 83, Glucose 94, Calcium 9.3, Total Bilirubin 0.6, AST 37, ALT 51, Alkaline Phosphatase 83, Total Protein 7.8, Albumin 4.5, Globulin 3.3 H, Albumin/Globulin Ratio 1.4 08/12/23 12:40: Urine Color Dark yellow, Urine Appearance Cloudy, Urine pH 8.5, Ur Specific [place] 1.025, Urine Protein 2+, Urine Glucose (UA) Negative, Urine Ketones Trace, Urine Blood 3+, Urine Nitrate Negative, Urine Bilirubin Negative, Urine Urobilinogen 1.0, Ur Leukocyte Esterase Trace, Urine RBC 50-100, Urine WBC 3-5, Ur Squamous Epith Cells Occasional, Urine Bacteria Trace, Urine Mucus Trace 08/12/23 11:23 08/12/23 11:23 Orders (Tests/Meds): ED MEDICATIONS Discontinued Medications Generic Name Dose Route Start Last Admin Trade Name Urielq PRN Reason Stop Dose Admin Acetaminophen 1,000 mg 08/12/23 11:19 08/12/23 11:35 Acetaminophen 1,000mg/100ml Vial IV 08/12/23 11:20 Not Given ONCE ONE Hydromorphone HCl 1 mg 08/12/23 11:29 08/12/23 11:41 Hydromorphone 2mg/Ml Syringe IV 08/12/23 11:30 1 mg ONCE ONE Administration Lactated Ringer's 1,000 mls @ 999 mls/hr 08/12/23 11:19 08/12/23 11:26 Lactated Ringer's 1000 Ml Bag IV 08/12/23 12:19 999 mls/hr .Q1H1M ONE Administration Ketorolac Tromethamine 15 mg 08/12/23 11:19 08/12/23 11:26 Ketorolac 30mg/Ml Vial IV 08/12/23 11:20 15 mg ONCE ONE Administration Morphine Sulfate 4 mg 08/12/23 11:19 08/12/23 11:30 Morphine 4mg/Ml Syringe IV 08/12/23 11:20 Not Given ONCE ONE Ondansetron HCl 4 mg 08/12/23 11:19 08/12/23 11:26 Ondansetron 4mg/2ml Vial IV 08/12/23 11:20 4 mg ONCE ONE Administration ORDERS Category Date Time Status CT abdomen pelvis wo con Stat Cat Scan 08/12/23 11:19 Completed Complete Blood Count Auto Diff Stat Lab 08/12/23 11:23 Completed Comprehensive Metabolic Panel Stat Lab 08/12/23 11:23 Completed UA [Urinalysis and Microscopic] Stat Lab 08/12/23 12:40 Completed Urine Culture Stat Micro 08/12/23 12:40 Received Medical Decision Narrative: In summary, this patient is a 37-year-old male presenting to the Emergency Department for evaluation of severe right flank pain in the setting of stent removal just prior to arrival. Differential diagnoses considered include but are not limited to retained ureteral stone, pyonephritis, cystitis, ureteral injury. Ruling out the most morbid conditions drove assessment. I reviewed patient's past medical records and noted previous evaluation here yesterday prior to stent removal for similar complaints. On exam, the patient is in acute distress, writhing around in bed screaming out in pain. Vitals are reassuring on cardiac telemetry. Workup included CBC, CMP, urinalysis, urine culture, and CT abdomen and pelvis without IV contrast. I offered to give him a liter bolus of IV fluids as well as IV Toradol, acetaminophen, and morphine. He notes he is allergic to morphine, so IV Dilaudid was ordered. He initially declined this, however it was then given because he agreed to take it in the setting of severe pain. I independently interpreted CT scan prior to the radiologist read and noted obstructive right ureteral stone with hydronephrosis. Please see their read for final interpretation. Labs were obtained that demonstrated hematuria. No evidence of UTI, no significant leukocytosis, no REESE. On reassessment, patient had great improvement after administration of event as above. He has a 4 mm retained stone with hydronephrosis but no evidence of REESE, infection, or other concerns. I called [facility] and had a discussion with Dr. Fitch [facility] who advised the patient can follow-up outpatient with no urgency. They will call the patient to help arrange follow-up. Patient already states that he has prescriptions at home for everything that he needs including pain medication and Toradol. Given this, no new prescriptions were made at this time. He was discharged home with instructions for close follow-up and strict return precautions after all questions were answered. Critical Care Critical Care Time Critical Care Time: No
[2023-08-12 11:55] LABS: Alanine Aminotransferase 51 U/L (12-78); Albumin Level 4.5 g/dl (3.5-5.0); Albumin/Globulin Ratio 1.4 (1.1-1.8); Alkaline Phosphatase 83 U/L (38-126); Anion Gap 14.1 mEq/L (5-15); Aspartate Amino Transferase 37 U/L (17-59); Bilirubin,Total 0.6 mg/dl (0.2-1.3); Blood Urea Nitrogen 7 mg/dl (9-20); Carbon Dioxide 25 mmol/L (22.0-30.0); Creatinine Clearance Estimated 117 mL/min (50-200); Estimated Glomerular Filt Rate 69 ml/min (>60); GFR (African American) 83 ML/MIN (>60); Globulin 3.3 g/dL (1.3-3.2); Total Protein,Serum 7.8 g/dl (6.3-8.2)
[2023-08-12 11:56] LABS: Calcium 9.3 mg/dl (8.4-10.2); Glucose 94 mg/dl (74-100)
[2023-08-12 12:31] VITALS: BP 124/83; PULSE 76; O2SAT 98
[2023-08-12 12:46] LABS: Microscopic, Urine URINE MICROSCOPIC (MICROSCOPIC)
[2023-08-12 12:50] LABS: Blood, Urine 3+ (Negative); Glucose,Urine (UA) Negative (Negative); Ketones,Urine TRACE (Negative); Leukocyte Esterase,Urine TRACE (Negative); Nitrate,Urine Negative (Negative); PH,Urine 8.5 (5.0-8.5); Protein,Urine 2+ (Negative); Specific Gravity, Urine 1.025 (1.005-1.030)
[2023-08-12 12:55] LABS: Bilirubin,Urine Negative (Negative)
[2023-08-12 12:56] LABS: Appearance,Urine Cloudy (Clear); Color,Urine Dark Yellow (Yellow)
[2023-08-12 13:01] VITALS: BP 123/83; PULSE 80; O2SAT 99
[2023-08-12 13:02] LABS: Bacteria,Urine Trace /lpf; Mucus,Urine Trace /lpf; RBC,Urine 50-100 #/hpf (0-3); Squamous Epithelial Cell,Urine Occasional #/hpf (0-5)
--- NOTE | 2023-08-12 13:22 | PC.NURSE ---
Call out to [facility] transfer center; imaging disc being made.
[2023-08-12 13:31] VITALS: BP 127/74; PULSE 83; O2SAT 99
--- NOTE | 2023-08-12 13:49 | PC.NURSE ---
Brice Cervantes on phone with [facility] regarding possible tx
--- NOTE | 2023-08-12 13:50 | PC.NURSE ---
[facility] advised they do not have Urology so they declined the tx
--- NOTE | 2023-08-12 14:07 | PC.NURSE ---
DR DRAKE SPEAKING WITH [facility]
[2023-08-12 14:31] VITALS: BP 124/74; PULSE 83; RESP 13; TEMP 36.7; O2SAT 99
== END 2023-08-12 14:32 | disposition home or self-care (01) ==
PROVIDERS: Emergency Provider Emergency Medicine
DX: R10.31 Right lower quadrant pain; M54.59 Other low back pain; N13.0 Hydronephrosis with ureteropelvic junction obstruction; N13.4 Hydroureter; N20.0 Calculus of kidney; F17.210 Nicotine dependence, cigarettes, uncomplicated
CPT/HCPCS: 74176; 80053; 81001; 85025; 87086; 96361; 96374; 96375; 99285; J0131; J1170; J1885; J2405; J7120

== ENCOUNTER 2023-08-12 21:53 | Emergency (ER) | payer OTHER, SELFPAY ==
[2023-08-12 22:01] VITALS: BP 155/96; PULSE 107; RESP 16; TEMP 36.8; O2SAT 98; BMI 31.7
[2023-08-12] MEDS: MORPHINE 4MG/ML SYRINGE 8 MG IV (22:11)
[2023-08-12] MEDS: LACTATED RINGERS 1000ML 1,000 ML 999 ML IV (22:12)
[2023-08-12] MEDS: ONDANSETRON 4MG/2ML VIAL 4 MG IV (22:12)
[2023-08-12 22:22] LABS: Chloride 108 mmol/L (98-107); Potassium 4.1 mmoL/L (3.5-5.1); Sodium 139 mmol/L (136-145)
[2023-08-12 22:25] LABS: Alanine Aminotransferase 47 U/L (12-78); Albumin Level 4.2 g/dl (3.5-5.0); Albumin/Globulin Ratio 1.4 (1.1-1.8); Alkaline Phosphatase 70 U/L (38-126); Aspartate Amino Transferase 38 U/L (17-59); Bilirubin,Total 0.3 mg/dl (0.2-1.3); Blood Urea Nitrogen 15 mg/dl (9-20); Carbon Dioxide 20 mmol/L (22.0-30.0); Creatinine Clearance Estimated 94 mL/min (50-200); Estimated Glomerular Filt Rate 53 ml/min (>60); GFR (African American) 64 ML/MIN (>60); Globulin 3.1 g/dL (1.3-3.2); Total Protein,Serum 7.3 g/dl (6.3-8.2)
[2023-08-12 22:26] LABS: Anion Gap 15.1 mEq/L (5-15); Calcium 9.3 mg/dl (8.4-10.2); Glucose 116 mg/dl (74-100)
[2023-08-12 22:30] VITALS: PULSE 93; RESP 22; O2SAT 99
--- NOTE | 2023-08-12 22:33 | ECG_ITS ---
APPROVED REPORT Exam: Resting ECG HR:92 bpm ECG Measurements Heart Rate 92 AXES NJ 170 P 69 QRSd 110 QRS 37 QT 302 T -18 QTc 351 Conclusion SINUS RHYTHM POSSIBLE INFERIOR MYOCARDIAL INFARCTION , OF INDETERMINATE AGE [30 ms Q WAVE IN II/aVF] ABNORMAL ECG UNCONFIRMED REPORT Electronically signed by : ARUN APARICIO, 08/13/2023 06:49:55
[2023-08-12] MEDS: droPERidol 5MG/2ML VIAL 2.5 MG IV (22:34)
--- NOTE | 2023-08-12 22:46 | HMH.EDGENADL ---
Discharge Plan Disposition Patient Disposition: Xfer Short-Term Hosp Prescriptions Prescriptions: No Action ondansetron 4 mg tablet,disintegrating 4 mg PO Q8H PRN (Reason: nausea and vomiting) Qty: 10 0RF ketorolac 10 mg tablet 10 mg PO Q8H PRN (Reason: pain) Qty: 20 0RF Rx Instructions: maximum total duration of 5 days from all oral, intranasal, or parenteral formulations cephalexin 500 mg capsule 500 mg PO QID 7 Days Qty: 28 0RF Referrals Follow up/Referrals: Provider,Referral, MD [Primary Care Provider] - See instructions Clinical Impressions Clinical Impression: Ureterolithiasis, Hydronephrosis, right Discharge ED Provider: Imtiaz Lozoya General Adult HPI General Chief complaint: PAIN Stated complaint: post op 08/11, abd pain, shakey Time Seen by Provider: 08/12/23 21:58 Mode of Arrival: Family Vehicle Source of Information: Patient Limitations: No Limitations Description of Symptoms (Recalled from ER Triage Doc. by RN): 37 YO MALE PRESENTS WITH CONTINUED RIGHT SIDE FLANK PAIN, AND SUPRAPUBIC ABD PAIN. PATIENT IS DEMONSTRATIVE WITH HIS PAIN ISSUES AND REPORTS 15/10 PAIN. VOIDING OK. JUST PAINFUL. WOULD LIKE EVALUATED FOR INTRACTIBLE PAIN. History of Present Illness HPI narrative: Please note that above description of symptoms, in this electronic medical record under categorization of recalled from ER triage doctor by RN are reflective of an initial nursing assessment, however, is not reflective of my full history and physical exam that was personally taken and clarified. Consequentially, this preceding description of symptoms, which may include the patient's categorized chief complaint in the EMR, do not reflect my personal clinical impression, and the ultimate description of history of present illness and patient stated complaints should be deferred to this section of the note. Unless stated otherwise or congruent with this section of the note, additional signs, symptoms, or incongruence should be interpreted as inaccurate with my clinical impression. Related Data Previous Rx's Medication Instructions Recorded cephalexin 500 mg capsule 500 mg PO QID 7 days #28 caps 08/11/23 ketorolac 10 mg tablet 10 mg PO Q8H PRN pain #20 tabs 08/11/23 ondansetron 4 mg disintegrating 4 mg PO Q8H PRN nausea and 08/11/23 tablet vomiting #10 tabs Allergies Allergy/AdvReac Type Severity Reaction Status Date / Time morphine Allergy Verified 08/12/23 11:30 [facility] Disclaimer: The information contained in this section may have been updated after the patient was seen, as this information can be updated by other users. Medical History PTSD (post-traumatic stress disorder) Anxiety Social History Smoking Status: Unknown if ever smoked alcohol intake: former current occupational status: other Travel in the last 8 weeks: Inside the [place] ROS Obtained: Yes All systems reviewed & no additional complaints except as documented Physical Exam General General appearance: alert, in distress and obese Head Head exam: atraumatic and normocephalic Eye Eye exam: Present normal appearance, PERRL and EOMI ENT ENT exam: Present mucous membranes moist Neck Neck exam: Present normal inspection, full ROM and trachea midline Respiratory Respiratory exam: Absent respiratory distress, wheezes, stridor, accessory muscle use or prolonged expiratory phase Cardiovascular Cardiovascular exam: Present normal rhythm Abdominal Exam Abdominal exam: Present soft; Absent distention, tenderness, guarding, rebound or rigidity Extremities Exam Extremities exam: Absent edema Neurological Exam Neurological exam: Present alert, oriented X3, CN II-XII intact and normal gait; Absent motor sensory deficit Skin Skin exam: Present warm and dry; Absent diaphoresis or erythema Medical Decision Making Medical Records Medical records reviewed: Yes I reviewed the patient's medical records. Colin Inquiry Pt receiving controlled substance: No Colin was queried for this patient: No Vital Signs: 08/12/23 22:01 Temperature 98.2 F Temperature Source Oral Pulse Rate [Right Brachial] 107 H Respiratory Rate 16 Blood Pressure [Right Arm] 155/96 H Blood Pressure Mean [Right Arm] 115 Blood Pressure Source [Right Arm] Automatic Cuff Blood Pressure Position [Right Arm] Sitting 02 Sat by Pulse Oximetry 98 Oxygen Delivery Method Room Air Lab Data Lab Results 08/12/23 22:10: Sodium 139, Potassium 4.1, Chloride 108 H, Carbon Dioxide 20 L, Anion Gap 15.1 H, BUN 15 D, Creatinine 1.50 H D, Estimated Creat Clear 94, Estimated GFR 53 L, Est GFR ( Amer) 64 D, Glucose 116 H D, Calcium 9.3, Total Bilirubin 0.3, AST 38, ALT 47, Alkaline Phosphatase 70, Total Protein 7.3, Albumin 4.2, Globulin 3.1, Albumin/Globulin Ratio 1.4 08/12/23 22:10 Orders (Tests/Meds): ED MEDICATIONS Discontinued Medications Generic Name Dose Route Start Last Admin Trade Name Roger PRN Reason Stop Dose Admin Droperidol 2.5 mg 08/12/23 22:28 08/12/23 22:34 Droperidol 5mg/2ml Vial IV 08/12/23 22:29 2.5 mg ONCE ONE Administration Lactated Ringer's 1,000 mls @ 999 mls/hr 08/12/23 22:04 08/12/23 22:12 Lactated Ringer's 1000 Ml Bag IV 08/12/23 23:04 999 mls/hr .Q1H1M ONE Administration Ketorolac Tromethamine 15 mg 08/12/23 22:46 Ketorolac 30mg/Ml Vial IV 08/12/23 22:47 ONCE ONE Morphine Sulfate 8 mg 08/12/23 22:04 08/12/23 22:11 Morphine 4mg/Ml Syringe IV 08/12/23 22:05 8 mg ONCE ONE Administration Ondansetron HCl 4 mg 08/12/23 22:04 08/12/23 22:12 Ondansetron 4mg/2ml Vial IV 08/12/23 22:05 4 mg ONCE ONE Administration ORDERS Category Date Time Status CMP [Comprehensive Metabolic Panel] Stat Lab 08/12/23 22:10 Completed Medical Decision Narrative: 37-year-old male history of nephrolithiasis recent stenting, had stent removed this morning, 08/11 at [facility] presenting with right flank and right abdominal pain. Patient states that he had the stent removed at 8:30 AM today, 08/11. Had immediate pain, but it was not terrible. Had progressively worsening pain, came back to the emergency department here in [place] for the third time this month and CT scan revealed 4 mm right UVJ stone with severe hydronephrosis. Patient sent home with pain medication and outpatient follow-up with urology. Patient returns again today for his fourth visit this month in July 2023 for severe pain. He is diaphoretic, pale, shaking and in pain. Tylenol and flank tenderness on the right. No overlying skin changes. exam deferred given patient states that he is having intermittent red blood per urethra when urinating. Already had CT scan done this morning, less than 12 hours ago, CT scan was considered, but not deemed necessary at this time. Grossly bloody urine. Patient has an REESE with creatinine 1.5 up from normal baseline at 1.0. Patient was given fluids, morphine, Toradol. Morphine was given after conversation about patient's allergy, which was slowed heart rate and breathing. It was explained that this happens everybody. Patient agreeable to receiving at this time. [place] was contacted and case was discussed at length. Patient accepted as transfer. Because patient high risk for clinical decompensation if discharged, deemed appropriate for transfer and inpatient admission. Results were relayed to patient who voiced understanding and patient was agreeable to transfer, inpatient admission, and management. Patient was graciously accepted and transferred to [place] for further definitive management, under Dr. Fiore. Radiotelegrapher disclaimer Much of this encounter note is an electronic nutrition therapist spoken language to printed text. Electronic nutrition therapist of the spoken language may permit errors. Although I have reviewed the note, some errors may still exist. Critical Care Critical Care Time Critical Care Time: No
[2023-08-12 23:00] VITALS: BP 148/105; PULSE 90; RESP 20; O2SAT 97
--- NOTE | 2023-08-12 23:06 | PC.NURSE ---
Dr. Fiore with [facility] speaking with Dr. Lozoya.
--- NOTE | 2023-08-12 23:10 | PC.NURSE ---
Notified radiology to make disk of patient CT from earlier visit.
[2023-08-12 23:30] VITALS: BP 146/92; PULSE 86; RESP 20; O2SAT 99
[2023-08-13] VITALS: BP 138/93; PULSE 99; RESP 18; O2SAT 97
--- NOTE | 2023-08-13 | PC.NURSE ---
Report called to [facility] 4a to RADHA Marmolejo.
[2023-08-13 00:31] VITALS: BP 143/105; PULSE 86; RESP 16; O2SAT 99
--- NOTE | 2023-08-13 00:45 | PC.NURSE ---
call placed to [facility] at this time.
--- NOTE | 2023-08-13 00:59 | PC.NURSE ---
ems arrived and receiving report from altafrn
[2023-08-13] MEDS: KETOROLAC 30MG/ML VIAL 15 MG IV (01:09)
[2023-08-13 01:14] VITALS: BP 143/105; PULSE 91; RESP 18; TEMP 36.6; O2SAT 99
--- NOTE | 2023-08-23 07:53 | PC.NURSE ---
reviewed urine culture, no growth for final culture, ntd
== END 2023-08-13 01:15 | disposition short-term general hospital (02) ==
PROVIDERS: Emergency Provider Emergency Medicine
DX: R10.0 Acute abdomen (principal); N13.0 Hydronephrosis with ureteropelvic junction obstruction
CPT/HCPCS: 80053; 93005; 96361; 96374; 96375; 99285; J1790; J1885; J2270; J2405; J7120